=== PATIENT | female | born 1990 | race American Indian/Alaskan Native ===

== ENCOUNTER 2017-12-01 22:23 | Outpatient (CLI) | payer MEDICAID ==
[2017-12-01 23:23] VITALS: BP 130/78
[2017-12-02] MEDS ORDERED: LACTATED RINGERS 500 ML IV ONE (00:50)
== END 2017-12-02 01:01 | disposition home or self-care (01) ==
LOC: TRG 22:23
PROVIDERS: ATTEND Obstetrics & Gynecology
DX: O47.03 False labor before 37 completed weeks of gestation, third trimester (principal); Z3A.36 36 weeks gestation of pregnancy
CPT/HCPCS: J7120

== ENCOUNTER 2017-12-08 08:36 | Outpatient (CLI) | payer MEDICAID ==
[2017-12-08 09:21] LABS: Bacteria,Urine 1+ /HPF (Negative); Bilirubin,Urine NEG (Negative); Blood,Urine NEG (Negative); Color,Urine Straw (Yellow); Protein,Urine <15 mg/dL mg/dL (Negative); Urobilinogen,Urine < 2.0 mg/dL (<2.0)
[2017-12-08 09:24] LABS: Mean Corpuscular HGB Conc 29 % (30-34); Mean Corpuscular Volume 75 fl (79-97); Red Blood Count 3.89 M/mm3 (3.65-5.03)
[2017-12-08 09:26] LABS: Hematocrit 29.3 % (30.3-42.9); Hemoglobin 8.6 gm/dl (10.1-14.3); Mean Corpuscular Hemoglobin 22 pg (28-32); Platelet Count 280 K/mm3 (140-440)
[2017-12-08 10:13] VITALS: BP 133/87
[2017-12-08 10:31] LABS: Alanine Aminotransferase 7 units/L (7-56); Uric Acid 3.6 mg/dL (3.5-7.6)
--- NOTE | 2017-12-08 11:05 | Ultrasound Report ---
ULTRASOUND OB LIMITED History: MIREYA Technique: Transabdominal ultrasound with Doppler interrogation. Gestation: Single Position: Cephalic Amniotic Fluid: Normal MIREYA = 9.0 cm Heart Rate: 140 BPM
--- NOTE | 2017-12-08 11:06 | Ultrasound Report ---
ULTRASOUND BIOPHYSICAL PROFILE: History: well being Technique: Transabdominal ultrasound with Doppler interrogation. 2 - breathing movements 2 - movements 2 - posture and tone 2 - Qualitative amniotic fluid volume 8 - TOTAL SCORE OF POSSIBLE 8 Heart Rate (bpm) 140
== END 2017-12-08 12:50 | disposition home or self-care (01) ==
LOC: TRG 08:36
PROVIDERS: ATTEND Obstetrics & Gynecology
DX: O47.1 False labor at or after 37 completed weeks of gestation (principal); Z3A.37 37 weeks gestation of pregnancy
CPT/HCPCS: 36415; 59025; 76815; 76819; 81001; 82565; 83615; 84450; 84460; 84550; 85027

== ENCOUNTER 2017-12-09 09:57 | Inpatient (IN) | payer MEDICAID ==
[2017-12-09] MEDS ORDERED: LACTATED RINGERS 1,000 ML ONE (12:24)
[2017-12-09] MEDS ORDERED: POLYCILLIN/NS 2 GM/100 ML 2 GM/100 ML BAG IV ONE (12:33)
[2017-12-09] MEDS ORDERED: PITOCin/NS 30 UNIT/500ML 30 UNITS/500 ML BAG IV SCH ×3 (13:00→15:00)
[2017-12-09] MEDS ORDERED: LACTATED RINGERS 1,000 ML IV SCH ×2 (13:00→15:00)
[2017-12-09] MEDS ORDERED: BRETHINE IVP PRN (14:44)
[2017-12-09] MEDS ORDERED: XYLOCAINE 2% INFILTRATI ONE (14:44)
[2017-12-09] MEDS ORDERED: BRETHINE SUB-Q PRN (14:44)
[2017-12-09] MEDS ORDERED: STADOL IV PRN (14:44)
[2017-12-09] MEDS ORDERED: ZOFRAN IV PRN ×2 (14:44→19:09)
[2017-12-09] MEDS ORDERED: ePHEDrine SULFATE IV PRN (14:44)
[2017-12-09] MEDS ORDERED: MINERAL OIL PO PRN (14:44)
[2017-12-09] MEDS ORDERED: SUBLIMAZE IV PRN (14:44)
--- NOTE | 2017-12-09 14:54 | History and Physical Report ---
History of Present Illness Date of examination: 12/09/17 Date of admission: 12/09/17 09:57 Chief complaint: Induction of labor History of present illness: Pt is a 27yo BF EDC 12/27/17; EGA 37 3/7 weeks presents from [facility] for induction of labor due to Oligohydramnios. She received late care at [facility] since 32 weeks and followed by [facility] for history of deliveries x 3. records are available, but GBS is unknown. Past History Past Medical History: no pertinent history Past Surgical History: no surgical history Social history: no significant social history, single - Obstetrical History Expected Date of Delivery: 12/27/17 Actual Gestation: 37 Week(s) 3 Day(s) : 4 Medications and Allergies Allergies Allergy/AdvReac Type Severity Reaction Status Date / Time No Known Allergies Allergy Verified 05/12/14 09:52 Home Medications Medication Instructions Recorded Confirmed Last Taken Type HYDROcodone/ACETAMINOPHEN [[place] 1 each PO Q6HR #20 tablet 05/12/14 Unknown Rx 5/325 Tablet] Ibuprofen [Motrin] 600 mg PO Q8H PRN #40 tablet 05/12/14 Unknown Rx Sulfamethoxazole/Trimethoprim 1 each PO BID #14 tablet 05/12/14 Unknown Rx [Bactrim Ds] Active Meds: Active Medications Lactated Ringer's (Lactated Ringers) 1,000 mls @ 125 mls/hr IV DIRECT KEITH Last Admin: 12/09/17 13:06 Dose: 125 mls/hr Oxytocin/Sodium Chloride (Pitocin/Ns 30 Unit/500ml) 30 units in 500 mls @ 4 mls /hr IV TITR KEITH; Protocol Last Titration: 12/09/17 14:47 Dose: 12 ml/hr, 12 mls/hr Review of Systems All systems: negative - Vital Signs Vital signs: Vital Signs Pulse BP 95 H 122/83 12/09/17 10:28 12/09/17 10:28 Temp Pulse Resp BP Pulse Ox 98.1 F 93 H 16 119/78 99 12/09/17 11:49 12/09/17 12:11 12/09/17 11:49 12/09/17 12:06 12/09/17 12:11 - Physical Exam Breasts: Positive: deferred Cardiovascular: Regular rate Lungs: Positive: Clear to auscultation Abdomen: Positive: normal appearance Genitourinary (Female): Positive: normal external genitalia Uterus: Positive: enlarged Extremities: Positive: normal - Obstetrical FHR: category 1 Uterine Contraction Monitor Mode: External Cervical Dilatation: 3 (per nurse) Cervical Effacement Percentage: 30 (per nurse) station: -2 Uterine Contraction Pattern: Irregular Uterine Contraction Intensity: Mild Results All other labs normal. Assessment and Plan - Patient Problems (1) 37 weeks gestation of Current Visit: Yes Status: Acute Plan to address problem: A: IUP @ 37 3/7 weeks Oligohydramnios Unknown GBS P: Admit to L&D for pitocin induction of labor IV Ampicillin (2) Oligohydramnios without rupture of membranes in third trimester Onset Date: 12/09/17 Current Visit: Yes Status: Acute Qualifiers: Fetus number: single or unspecified fetus Qualified Code(s): O41.03X0 - Oligohydramnios, third trimester, not applicable or unspecified
[2017-12-09] MEDS ORDERED: PITOCin/NS 20 UNIT/1000ML DRIP 20 UNITS/1,000 ML BAG IV SCH ×2 (15:00→20:00)
[2017-12-09 17:06] LABS: Hematocrit 28.7 % (30.3-42.9); Mean Platelet Volume 8.2 fl (6-12); Red Blood Count 3.97 M/mm3 (3.65-5.03)
[2017-12-09] MEDS ORDERED: SODIUM CHLORIDE FLUSH SYRINGE 10 ML IV PRN (18:44)
[2017-12-09] MEDS ORDERED: NARCAN 0.4 MG/1 ML IV PRN (18:44)
--- NOTE | 2017-12-09 18:44 | Anesthesia Consultation ---
Anesthesia Consult and Med Hx Date of service: 12/09/17 - Airway Anesthetic Teeth Evaluation: Good ROM Head & Neck: Adequate Mental/Hyoid Distance: Adequate Mallampati Class: Class II Intubation Access Assessment: Good - Pulmonary Exam CTA: Yes - Cardiac Exam Cardiac Exam: No Murmur - Pre-Operative Health Status ASA Pre-Surgery Classification: ASA2 Proposed Anesthetic Plan: Epidural - Pulmonary Hx Asthma: No COPD: No Hx Pneumonia: No - Cardiovascular System Hx Hypertension: Yes - Central Nervous System Hx Seizures: No Hx Psychiatric Problems: No - Endocrine Hx Renal Disease: No Hx End Stage Renal Disease: No Hx Hypothyroidism: Yes Hx Hyperthyroidism: No - Hematic Hx Sickle Cell Disease: No - Other Systems Hx Alcohol Use: No
[2017-12-09] MEDS ORDERED: AMPICILLIN/NS 1 GM/50 ML 1 GM/50 ML BAG IV SCH (18:47)
--- NOTE | 2017-12-09 19:07 | Procedure Note ---
OB Delivery Note - Delivery Date of Delivery: 12/09/17 Surgeon: JÚNIOR DOMINGO Estimated blood loss: 200cc - Vaginal Delivery presentation: vertex Delivery position: OA Intrapartum events: none, hydramnios Delivery induction: oxytocin Delivery augmentation: rupture of membranes, pitocin Delivery monitor: external FHT, external uterine Route of delivery: Delivery placenta: spontaneous Delivery cord: 3 umbilical vessels Episiotomy: none Delivery laceration: none Anesthesia: intravenous Delivery comments: Infant delivered OA and placed on Mom's chest for [id number] bonding and delayed cord clamping. - Infant A at 1 minute: 9 at 5 minutes: 9 Infant Gender: Male (2970gms)
[2017-12-09] MEDS ORDERED: DULCOLAX PR PRN (19:09)
[2017-12-09] MEDS ORDERED: LANSINOH TP PRN (19:09)
[2017-12-09] MEDS ORDERED: BENADRYL PO PRN (19:09)
[2017-12-09] MEDS ORDERED: TYLENOL PO PRN (19:09)
[2017-12-09] MEDS ORDERED: TUCKS PAD TP PRN (19:09)
[2017-12-09] MEDS ORDERED: NORCO 5/325 PO PRN (19:09)
[2017-12-09] MEDS ORDERED: PHENERGAN PO PRN (19:09)
[2017-12-09] MEDS ORDERED: PHENERGAN PR PRN (19:09)
[2017-12-09] MEDS ORDERED: MILK OF MAGNESIA PO PRN (19:09)
[2017-12-09] MEDS ORDERED: MOTRIN PO SCH (20:00)
[2017-12-09] MEDS ORDERED: SODIUM CHLORIDE FLUSH SYRINGE 10 ML IV NR (20:00)
[2017-12-09] MEDS: COLACE PO SCH (21:40)
[2017-12-09] MEDS: FEOSOL PO SCH (21:40)
[2017-12-09] MEDS: MOTRIN PO SCH (23:34)
[2017-12-10] MEDS: MOTRIN PO SCH ×3 (05:07→18:09)
[2017-12-10] MEDS ORDERED: M-M-R II VACCINE SUB-Q ONE (06:00)
[2017-12-10] MEDS ORDERED: BOOSTRIX IM ONE (06:00)
[2017-12-10 06:37] LABS: Hematocrit 23.7 % (30.3-42.9); Hemoglobin 7.5 gm/dl (10.1-14.3)
--- NOTE | 2017-12-10 09:02 | Progress Note ---
Assessment and Plan - Patient Problems (1) 37 weeks gestation of Current Visit: Yes Status: Resolved (2) Oligohydramnios without rupture of membranes in third trimester Onset Date: 12/09/17 Current Visit: Yes Status: Resolved Qualifiers: Fetus number: single or unspecified fetus Qualified Code(s): O41.03X0 - Oligohydramnios, third trimester, not applicable or unspecified (3) (normal spontaneous vaginal delivery) Onset Date: 12/10/17 Current Visit: Yes Status: Resolved Plan to address problem: A: S/P - PPD #1 Doing well Asymptomatic anemia - stable P: May go home tomorrow. Subjective - Subjective Date of service: 12/10/17 Principal diagnosis: s/p - PPD #1 Interval history: Pt is a 27yo BF EDC 12/27/17; EGA 37 3/7 weeks presents from [facility] for induction of labor due to Oligohydramnios. She received late care at [facility] since 32 weeks and followed by [facility] for history of deliveries x 3. records are available, but GBS is unknown. Patient reports: appetite normal, voiding normally, pain well controlled, flatus , ambulating normally, no dizzy ambulation, no nauseated : doing well, nursing well Objective - Vital Signs Latest vital signs: Vital Signs Temp Pulse Resp BP BP Pulse Ox 12/10/17 05:26 98 F 72 18 110/70 12/10/17 01:55 97.9 F 77 18 113/64 12/09/17 21:20 98.4 F 73 16 111/70 12/09/17 20:55 87 126/72 12/09/17 20:46 97.4 F L 87 16 126/72 12/09/17 20:32 88 116/77 12/09/17 19:55 72 120/72 12/09/17 19:40 74 122/73 12/09/17 19:25 81 124/70 12/09/17 19:18 84 124/62 12/09/17 19:14 88 151/68 12/09/17 17:29 18 12/09/17 12:11 93 H 99 12/09/17 12:06 94 H 119/78 99 12/09/17 11:49 98.1 F 92 H 16 119/78 99 12/09/17 10:28 95 H 122/83 Intake and Output 12/09/17 12/10/17 12/10/17 22:59 06:59 14:59 Intake Total 125 245 Output Total 600 1300 Balance -475 -1055 Intake: Oral 125 125 Intake, Free Water 120 Output: Urine 600 1300 Void 600 1300 Other: Total, Intake Amount 125 125 Total, Output Amount 600 600 Estimated Blood Loss 200 - Exam Breasts: Present: deferred Lungs: Present: Clear to auscultation Abdomen: Present: normal appearance, soft Uterus: Present: normal, firm, fundal height below umbilicus Extremities: Present: normal - Labs Labs: Abnormal lab results 12/09/17 12/10/17 Range/Units 16:34 06:13 Hgb 9.0 L 7.5 L (10.1-14.3) gm/dl Hct 28.7 L 23.7 L (30.3-42.9) % MCV 72 L (79-97) fl MCH 23 L (28-32) pg RDW 18.0 H (13.2-15.2) % Laboratory Tests 12/09/17 12/09/17 12/10/17 16:34 16:34 06:13 WBC 6.8 RBC 3.97 Hgb 9.0 L 7.5 L Hct 28.7 L 23.7 L MCV 72 L MCH 23 L MCHC 32 RDW 18.0 H Plt Count 362 Blood Type O POSITIVE Antibody Screen Negative
--- NOTE | 2017-12-10 09:07 | Discharge Summary ---
Providers - Providers Date of Admission: 12/09/17 09:57 Date of discharge: 12/11/17 Attending physician: JÚNIOR DOMINGO Primary care physician: JÚNIOR DOMINGO Hospitalization Reason for admission: active labor, IUP at term Delivery: Episiotomy: none Laceration: none Other procedures: none complications: none Discharge diagnosis: IUP at term delivered [place] baby: male Hospital course: Unremarkable. Condition at discharge: Good Disposition: DC-01 TO HOME OR SELFCARE - Discharge Diagnoses (1) 37 weeks gestation of Status: Resolved (2) Oligohydramnios without rupture of membranes in third trimester Status: Resolved Qualifiers: Fetus number: single or unspecified fetus Qualified Code(s): O41.03X0 - Oligohydramnios, third trimester, not applicable or unspecified (3) (normal spontaneous vaginal delivery) Status: Resolved Plan - Discharge Medications Prescriptions: Ferrous Sulfate [Feosol 325 MG tab] 325 mg PO BID #60 tablet Ibuprofen [Motrin 600 MG tab] 600 mg PO Q6HR #30 tablet Vit-Fe Fumar-FA [ Vitamin] 1 each PO QDAY #30 tablet - Provider Discharge Summary Activity: routine, no sex for 6 weeks, no heavy lifting 4 weeks, no strenuous exercise Diet: routine Instructions: routine Additional instructions: [] Smoking cessation referral if applicable(refer to patient education folder for contact #) [] Refer to [facility]'s [facility] Booklet Call your doctor immediately for: * Fever > 100.5 * Heavy vaginal bleeding ( >1 pad per hour) * Severe persistent headache * Shortness of breath * Reddened, hot, painful area to leg or breast * Drainage or odor from incision. * Keep incision clean and dry at all times and follow doctor's instructions regarding bathing/showering - Follow up plan Follow up: JÚNIOR DOMINGO MD [Primary Care Provider] - 6 Weeks CHARISSE GARVIN CNM [Advanced Practice Nurse] - 6 Weeks
[2017-12-10] MEDS ORDERED: PRENATAL VITAMIN PO SCH (10:00)
[2017-12-10] MEDS: FEOSOL PO SCH (15:51)
[2017-12-11] MEDS: COLACE PO SCH (01:21)
[2017-12-11] MEDS: MOTRIN PO SCH ×2 (01:21→06:48)
[2017-12-11] MEDS: FEOSOL PO SCH (01:21)
[2017-12-11 16:43] VITALS: BP 120/66
== END 2017-12-11 18:00 | disposition home or self-care (01) | DRG 775 ==
LOC: LD 09:57 → OB 21:10
PROVIDERS: ADMIT Obstetrics & Gynecology; ATTEND Obstetrics & Gynecology
PROC: 10E0XZZ Delivery of Products of Conception, External Approach (ICD-10-PCS; principal; 2017-12-09)
PROC: 3E033VJ Introduction of Other Hormone into Peripheral Vein, Percutaneous Approach (ICD-10-PCS; 2017-12-09)
DX: O41.03X0 Oligohydramnios, third trimester, not applicable or unspecified (principal); Z3A.37 37 weeks gestation of pregnancy; Z37.0 Single live birth; Z79.899 Other long term (current) drug therapy; O90.81 Anemia of the puerperium; D64.9 Anemia, unspecified
CPT/HCPCS: 36415; 85014; 85018; 85027; 86592; 86850; 86900; 86901; 99211; A6250; G0463; J0290; J0595; J2590; J7120

== ENCOUNTER 2019-08-16 17:39 | Outpatient (CLI) | payer MEDICAID ==
[2019-08-16 18:11] VITALS: BP 134/73
[2019-08-16] MEDS ORDERED: LACTATED RINGERS 1,000 ML IV ONE (19:13)
[2019-08-16] MEDS ORDERED: LACTATED RINGERS 500 ML IV ONE (20:46)
[2019-08-16] MEDS ORDERED: TERBUTALINE 1 MG/1 ML INJ SUB-Q PRN ×2 (20:56→23:52)
[2019-08-16 21:39] LABS: Basophils % (Auto) 0.2 % (0.0-1.8); Eosinophils % (Auto) 0.5 % (0.0-4.3); Hematocrit 26.1 % (30.3-42.9); Hemoglobin 8.2 gm/dl (10.1-14.3); Lymphocytes # (Auto) 2.1 K/mm3 (1.2-5.4); Lymphocytes % (Auto) 24.5 % (13.4-35.0); Mean Corpuscular HGB Conc 32 % (30-34); Mean Corpuscular Volume 70 fl (79-97); Monocytes # (Auto) 0.5 K/mm3 (0.0-0.8); Monocytes % (Auto) 6.1 % (0.0-7.3); Platelet Count 419 K/mm3 (140-440); Red Blood Count 3.71 M/mm3 (3.65-5.03); Red Cell Distribution Width 18.7 % (13.2-15.2)
[2019-08-16] MEDS ORDERED: LACTATED RINGERS 1,000 ML ONE (23:57)
[2019-08-16 23:58] LABS: Amphetamine Screen,Urine PRESUMPTIVE NEGATIVE; Benzodiazepines Screen,Urine PRESUMPTIVE NEGATIVE; Cannabinoid Screen,Urine PRESUMPTIVE NEGATIVE; Cocaine Screen,Urine PRESUMPTIVE NEGATIVE; Methadone Screen,Urine PRESUMPTIVE NEGATIVE; Opiate Screen,Urine PRESUMPTIVE NEGATIVE
[2019-08-17 00:09] LABS: Bacteria,Urine 1+ /HPF (Negative); Bilirubin,Urine NEG (Negative); Blood,Urine NEG (Negative); Color,Urine Yellow (Yellow); Mucus,Urine FEW /HPF; Protein,Urine <15 mg/dL mg/dL (Negative); Urobilinogen,Urine < 2.0 mg/dL (<2.0)
[2019-08-17] MEDS ORDERED: fentaNYL 100 MCG/2 ML INJ IV PRN (00:43)
[2019-08-17] MEDS ORDERED: LACTATED RINGERS 1,000 ML ONE (02:03)
[2019-08-17] MEDS ORDERED: AMPICILLIN/NS 2 GM/100 ML 2 GM/100 ML BAG IV ONE (02:27)
--- NOTE | 2019-08-17 03:46 | Ultrasound Report ---
ULTRASOUND OBSTETRIC LIMITED ULTRASOUND BIOPHYSICAL PROFILE INDICATION / CLINICAL INFORMATION: Possible labor. COMPARISON: OB ultrasound from 12/08/2017. FINDINGS: BREATHING MOVEMENT = 2 GROSS BODY MOVEMENT = 2 TONE = 2 QUALITATIVE AMNIOTIC FLUID VOLUME = 2 TOTAL BIOPHYSICAL SCORE = 8/8 AMNIOTIC FLUID INDEX (cm) = Not measured. PRESENTATION: Cephalic. HEART RATE (beats per minute): 129 ADDITIONAL FINDINGS: The cervical length is 4.62 cm. IMPRESSION: 1. Biophysical Score = 8/8 2. Additional findings as above. Signer Name: Catracho Bryant MD Signed: 08/17/2019 3:42 AM Workstation Name: [id number]
--- NOTE | 2019-08-17 08:56 | Progress Note ---
Subjective - Subjective Date of service: 08/17/19 Principal diagnosis: iup@ 33.3wks/r/o PTL Objective - Vital Signs Vital Signs: Vital Signs - 12hr 08/16/19 08/16/19 08/16/19 21:30 21:35 21:40 Pulse Rate 97 H 100 H 104 H O2 Sat by Pulse 100 100 100 Oximetry 08/16/19 08/16/19 08/16/19 21:45 21:50 21:55 Pulse Rate 98 H 98 H 95 H O2 Sat by Pulse 100 100 100 Oximetry 08/16/19 08/16/19 08/16/19 22:00 22:05 22:10 Pulse Rate 102 H 102 H 108 H O2 Sat by Pulse 100 100 100 Oximetry 08/16/19 08/16/19 08/16/19 22:15 22:20 22:25 Pulse Rate 106 H 111 H 103 H O2 Sat by Pulse 100 100 100 Oximetry 08/16/19 08/16/19 08/16/19 22:30 22:35 22:40 Pulse Rate 110 H 110 H 111 H O2 Sat by Pulse 100 100 100 Oximetry 08/16/19 08/16/19 08/16/19 22:45 22:50 22:55 Pulse Rate 111 H 111 H 104 H O2 Sat by Pulse 100 100 100 Oximetry 08/16/19 08/16/19 08/17/19 23:00 23:05 00:08 Pulse Rate 107 H 116 H 121 H O2 Sat by Pulse 100 99 100 Oximetry 08/17/19 08/17/19 08/17/19 00:13 00:18 00:23 Pulse Rate 117 H 109 H 114 H O2 Sat by Pulse 100 100 100 Oximetry 08/17/19 08/17/19 08/17/19 00:28 00:33 00:38 Pulse Rate 111 H 114 H 113 H O2 Sat by Pulse 100 100 100 Oximetry 08/17/19 08/17/19 08/17/19 00:43 00:48 00:53 Pulse Rate 112 H 116 H 128 H O2 Sat by Pulse 100 100 100 Oximetry 08/17/19 08/17/19 08/17/19 00:58 01:03 01:08 Pulse Rate 116 H 114 H 116 H O2 Sat by Pulse 100 100 100 Oximetry 08/17/19 08/17/19 08/17/19 01:13 01:18 01:23 Pulse Rate 111 H 112 H 114 H O2 Sat by Pulse 97 100 99 Oximetry 08/17/19 08/17/19 08/17/19 01:28 01:33 01:38 Pulse Rate 104 H 103 H 113 H O2 Sat by Pulse 99 99 99 Oximetry 08/17/19 08/17/19 08/17/19 01:43 01:48 01:54 Pulse Rate 103 H 106 H 107 H O2 Sat by Pulse 98 99 99 Oximetry 08/17/19 08/17/19 08/17/19 01:57 01:59 02:04 Pulse Rate 110 H 107 H 104 H O2 Sat by Pulse 94 100 100 Oximetry 08/17/19 08/17/19 08/17/19 02:09 02:14 02:19 Pulse Rate 109 H 108 H 104 H O2 Sat by Pulse 100 100 100 Oximetry 08/17/19 08/17/19 08/17/19 02:24 02:29 02:34 Pulse Rate 107 H 104 H 107 H O2 Sat by Pulse 100 100 99 Oximetry 08/17/19 08/17/19 08/17/19 02:35 02:39 02:44 Pulse Rate 105 H 107 H 108 H O2 Sat by Pulse 92 99 100 Oximetry 08/17/19 08/17/19 08/17/19 02:49 02:54 02:59 Pulse Rate 106 H 103 H 107 H O2 Sat by Pulse 99 100 100 Oximetry 08/17/19 08/17/19 08/17/19 03:04 03:09 03:14 Pulse Rate 110 H 106 H 108 H O2 Sat by Pulse 99 99 100 Oximetry 08/17/19 08/17/19 08/17/19 03:19 03:24 03:29 Pulse Rate 105 H 104 H 102 H O2 Sat by Pulse 100 100 100 Oximetry 08/17/19 08/17/19 08/17/19 03:34 03:39 03:44 Pulse Rate 110 H 104 H 106 H O2 Sat by Pulse 100 99 100 Oximetry 08/17/19 08/17/19 08/17/19 03:49 03:54 03:59 Pulse Rate 106 H 108 H 112 H O2 Sat by Pulse 99 100 100 Oximetry 08/17/19 04:04 Pulse Rate 110 H O2 Sat by Pulse 100 Oximetry - Labs Labs: Abnormal Labs 12/10/19 12/10/19 21:20 23:00 Hgb 8.2 L Hct 26.1 L MCV 70 L MCH 22 L RDW 18.7 H U Epithel Cells (Auto) 16.0 H Laboratory Results - last 24 hr 08/16/19 08/16/19 08/16/19 20:50 21:20 23:00 WBC 8.7 RBC 3.71 Hgb 8.2 L Hct 26.1 L MCV 70 L MCH 22 L MCHC 32 RDW 18.7 H Plt Count 419 Lymph % (Auto) 24.5 [place] % (Auto) 6.1 Eos % (Auto) 0.5 Baso % (Auto) 0.2 Lymph # 2.1 [place] # 0.5 Eos # 0.0 Baso # 0.0 Seg Neutrophils % 68.7 Seg Neutrophils # 6.0 Urine Color Yellow Urine Turbidity Cloudy Urine pH 7.0 Ur Specific [place] 1.012 Urine Protein <15 mg/dl Urine Glucose (UA) Neg Urine Ketones 20 Urine Blood Neg Urine Nitrite Neg Urine Bilirubin Neg Urine Urobilinogen < 2.0 Ur Leukocyte Esterase Lg Urine WBC (Auto) 5.0 Urine RBC (Auto) 4.0 U Epithel Cells (Auto) 16.0 H Urine Bacteria (Auto) 1+ Urine Mucus Few Urine Opiates Screen Urine Methadone Screen Ur Barbiturates Screen Ur Phencyclidine Scrn Ur Amphetamines Screen U Benzodiazepines Scrn Urine Cocaine Screen U Marijuana (THC) Screen Drugs of Abuse Note Fibronectin Negative 08/16/19 23:00 WBC RBC Hgb Hct MCV MCH MCHC RDW Plt Count Lymph % (Auto) [place] % (Auto) Eos % (Auto) Baso % (Auto) Lymph # [place] # Eos # Baso # Seg Neutrophils % Seg Neutrophils # Urine Color Urine Turbidity Urine pH Ur Specific [place] Urine Protein Urine Glucose (UA) Urine Ketones Urine Blood Urine Nitrite Urine Bilirubin Urine Urobilinogen Ur Leukocyte Esterase Urine WBC (Auto) Urine RBC (Auto) U Epithel Cells (Auto) Urine Bacteria (Auto) Urine Mucus Urine Opiates Screen Presumptive negative Urine Methadone Screen Presumptive negative Ur Barbiturates Screen Presumptive negative Ur Phencyclidine Scrn Presumptive negative Ur Amphetamines Screen Presumptive negative U Benzodiazepines Scrn Presumptive negative Urine Cocaine Screen Presumptive negative U Marijuana (THC) Screen Presumptive negative Drugs of Abuse Note Disclamer Fibronectin
--- NOTE | 2019-08-17 09:25 | Event Note ---
Date: 08/17/19 29 y/o AA female @ 33.2 wks presented with c/o u/c and decreased FM. Per pt she is a pt at [facility] office. Upon arrival pt had FHTs of 140 with mod audrey, pos accels and neg decels. UC were q 3-4/ min. Cx 1/50%/-3. Active FM was noted. Pt's cervical length was 4.6 with a BPP of 8/8 per us. A reactive NST was noted. UA revealed cloudy urine with 1+ bacteria. Pt was given 2 liters of IV fluids, terbutaline times 2, and 2 doses of Fentanyl for c/o uc. 2 gms of Ampicillin was also given for suspected UTI. At 7am FHT was 138 with mod audrey, pos accels with occ mild variables. UCs were mild and occurring irregularly. After many hours of monitoring pt's cervix remained unchanged at 1/50%/-3 and pt was d/c'd home with PTL precaution instructions. Pt was advised to f/u with [facility] for ob f/u. POC agreed with plan of care.
[2019-08-17] MEDS ORDERED: PRENATAL VIT27-FE FUMARATE-FOLIC ACID VIT TAB PO SCH (10:00)
[2019-08-17] MEDS ORDERED: FERROUS SULFATE 325 MG TAB PO SCH (10:00)
== END 2019-08-17 08:05 | disposition home or self-care (01) ==
LOC: TRG 17:39
PROVIDERS: ATTEND Obstetrics & Gynecology
DX: O36.8130 Decreased fetal movements, third trimester, not applicable or unspecified (principal); O47.03 False labor before 37 completed weeks of gestation, third trimester; O10.913 Unspecified pre-existing hypertension complicating pregnancy, third trimester; O99.283 Endocrine, nutritional and metabolic diseases complicating pregnancy, third trimester; E03.9 Hypothyroidism, unspecified; Z3A.33 33 weeks gestation of pregnancy
CPT/HCPCS: 36415; 59025; 76815; 76819; 80307; 81001; 82731; 85025; 96360; 96365; 96366; 96368; 96372; J0290; J3010; J3105; J7120; 96361; 96374

== ENCOUNTER 2020-06-28 12:29 | Inpatient (IN) | payer MEDICAID ==
[2020-06-28] MEDS ORDERED: SENNOSIDES/DOCUSATE SODIUM 8.6/50 MG TAB PO PRN (12:39)
[2020-06-28] MEDS ORDERED: diphenhydrAMINE 25 MG CAP PO PRN (12:39)
[2020-06-28] MEDS ORDERED: SIMETHICONE 80 MG CHEW TAB PO PRN (12:39)
[2020-06-28] MEDS ORDERED: guaiFENesin DM 200/20 MG ORAL LIQD 10 ML PO PRN (12:39)
[2020-06-28] MEDS ORDERED: MAGNESIUM HYDROXIDE (MOM) ORAL LIQD UDC PO PRN (12:39)
[2020-06-28] MEDS ORDERED: ONDANSETRON 4 MG/2 ML INJ IV PRN (12:39)
[2020-06-28] MEDS ORDERED: DOCUSATE SODIUM 100 MG CAP PO PRN (12:39)
[2020-06-28] MEDS ORDERED: ACETAMINOPHEN 325 MG TAB PO PRN (12:39)
[2020-06-28] MEDS ORDERED: ALUM-MAG HYDROXIDE-SIMETHICONE 200-200-20MG/5ML ORAL LIQD 30 ML PO PRN (12:39)
--- NOTE | 2020-06-28 12:47 | History and Physical Report ---
History of Present Illness Date of examination: 06/28/20 Chief complaint: contractions q5-6 minutes, insufficient care. Sent from office History of present illness: EDC Confirmation: 08/19/2020 Past History : 6 Term Births: 3 Premature Births: 3 Living Children: 5 Para: 5 Mult. Births: 1 Prev : 1 Prev. attempt? 3 Aborta: 0 Elect. Ab: 0 Spont. Ab: 0 Ectopics: 0 # 1 Delivery date: 2010 Weeks Gestation: 37 labor: yes Delivery type: Hours of labor: 11 Anesthesia type: epidural Delivery location: [facility] Sex: Male weight: 5#14 # 2 Delivery date: 2012 Weeks Gestation: 34 labor: yes Delivery type: c/s Anesthesia type: epidural Delivery location: [facility] Infant Sex: female/male Comments: Twins, 1st baby vaginal, second baby transverse # 3 Delivery date: 2014 Weeks Gestation: 37 Delivery type: Anesthesia type: epidural Delivery location: [place] Sex: Male weight: 5 # 4 Delivery date: 2017 Weeks Gestation: 37 Delivery type: Anesthesia type: none Delivery location: [facility] Infant Sex: Male weight: 6# Comments: IOL [place] # 5 Delivery date: 2018 Weeks Gestation: 34.6 labor: yes Delivery type: Anesthesia type: none Delivery location: [facility] Sex: Female weight: 6# Past Medical History: Hyperthyroidism Abnormal pap Anxiety + Chalmydia Past Surgical History: c/s 2012 Tonsillectomy (1999) Past Medical History Surgery (Non-exam proctor): c/s 2012 Tonsillectomy (1999) Abnormal PAP: positive, ASCUS + 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 of genital herpes: no Partner hx. of genital herpes: no Rash, Viral, or Febrile illness since last LMP? no Genetic History Congenital Heart Defect: Mom: no Dad: no Pat Disease: Mom: no Dad: no Thalassemia Mom: no Dad: no Neural Tube Defect Mom: no Dad: no Down's Syndrome Mom: no Dad: no Deon-Sachs Mom: no Dad: no Sickle Cell Disease/Trait Mom: no Dad: no Hemophilia Mom: no Dad: no Muscular Dystrophy Mom: no Dad: no Cystic Fibrosis Mom: no Dad: no Melvin Chorea Mom: no Dad: no Mental Retardation Mom: no Dad: no Fragile X Mom: no Dad: no Other Genetic/Chromosomal Disorder Mom: no Dad: no Child w/other defect Mom: no Dad: no Enviromental Exposures Xray Exposure: no Medication, drug, or alcohol use since LMP: no Chemical/Other Exposure: no Exposure to Cat Liter: no Hx of Parvovirus (Fifth Disease): no Occupational Exposure to Children: none Active Medications (reviewed today): None Current Allergies (reviewed today): No known allergies Past History Past Medical History: other (see HPI) Past Surgical History: other (see HPI) [employer] ASSISTANT History: other (see HPI) Family/Genetic History: other (see HPI) - Obstetrical History Expected Date of Delivery: 08/19/20 Actual Gestation: 32 Week(s) 4 Day(s) : 6 Para: 4 Hx # Term Pregnancies: 3 Number of Pregnancies: 3 Spontaneous Abortions: 0 Induced : 0 Number of Living Children: 6 Medications and Allergies Allergies Allergy/AdvReac Type Severity Reaction Status Date / Time No Known Allergies Allergy Verified 05/12/14 09:52 Home Medications Medication Instructions Recorded Confirmed Last Taken Type Ferrous Sulfate [Feosol 325 MG tab] 325 mg PO BID #60 tablet 09/05/19 Unknown Rx Ibuprofen [Motrin 600 MG tab] 600 mg PO Q6H #30 tablet 09/05/19 Unknown Rx Vit-Fe Fumar-FA [ 1 each PO QDAY #30 tablet 09/05/19 Unknown Rx Vitamin] Active Meds: Active Medications Betamethasone Acet/Betameth SodPhos (Celestone Soluspan) 12 mg IM Q24HR KEITH Stop: 06/29/20 10:01 Diphenhydramine HCl (Benadryl) 25 mg PO Q6H PRN PRN Reason: Itching Guaifenesin (Guaifenesin Dm Syrup) 10 ml PO Q6H PRN PRN Reason: Cough Lactated Ringer's (Lactated Ringers) 1,000 mls @ 125 mls/hr IV DIRECT KEITH Ondansetron HCl (Zofran) 4 mg IV Q6H PRN PRN Reason: Nausea And Vomiting Review of Systems All systems: negative - Physical Exam Breasts: Positive: normal Cardiovascular: Regular rate Lungs: Positive: Clear to auscultation, Normal air movement Abdomen: Positive: normal appearance, soft Genitourinary (Female): Positive: normal external genitalia, normal perenium Vulva: both: normal Vagina: Positive: normal moisture Uterus: Positive: normal size, normal contour - Obstetrical FHR: auscultation normal Uterine Contraction Monitor Mode: External Cervical Dilatation: 0.5 Cervical Effacement Percentage: 70 station: -3 Uterine Contraction Pattern: Regular Uterine Tone Measurement Phase: Contraction Uterine Contraction Intensity: Mild Results All other labs normal. Assessment and Plan 30y/o admitted for steroids and tocolysis if needed. She presented to our office today to establish her care. She c/o ctx q5-6 minutes x 1 week. She is a prev c/s. She has 1 previous visit with [facility] @ 26 weeks. hx delivery and close conceptions, also hx of hypothyroidism w/ medication noncompliance per her mother. Admission orders in EMR. Will consult [facility]. - Patient Problems (1) Hypothyroidism Current Visit: Yes Status: Acute Plan to address problem: Labs collected (2) Previous delivery, antepartum condition or complication Current Visit: Yes Status: Acute Plan to address problem: plan for a repeat c/s @ 39 weeks or sooner if goes into active labor, pt desires tubal ligation. Consents signed 06/28/20 (3) 32 weeks gestation of Current Visit: Yes Status: Acute (4) Late care affecting in third trimester Current Visit: Yes Status: Acute (5) contractions Onset Date: 09/04/19 Current Visit: Yes Status: Resolved Plan to address problem: Mag sulfate and steroids for lung maturity AMFM consult
[2020-06-28 14:17] LABS: Hematocrit 24.4 % (30.3-42.9); Hemoglobin 7.9 gm/dl (10.1-14.3); Mean Corpuscular HGB Conc 32 % (30-34); Platelet Count 380 K/mm3 (140-440); Red Blood Count 3.68 M/mm3 (3.65-5.03)
[2020-06-28 14:21] LABS: Mean Corpuscular Volume 66 fl (79-97)
[2020-06-28] MEDS: BETAMET ACET/BETAMET NA PH 6 MG/ML INJ 5 ML MDV IM SCH (14:32)
[2020-06-28] MEDS: LACTATED RINGERS 1,000 ML IV SCH ×2 (14:34→22:24)
[2020-06-28] MEDS ORDERED: TERBUTALINE 1 MG/1 ML INJ SUB-Q ONE ×2 (14:58→17:00)
[2020-06-28 19:33] LABS: Bilirubin,Urine NEG (Negative); Blood,Urine NEG (Negative); Color,Urine Colorless (Yellow); Protein,Urine <15 mg/dL mg/dL (Negative); Urobilinogen,Urine < 2.0 mg/dL (<2.0); WBC,Urine < 1.0 /HPF (0.0-6.0)
[2020-06-28 19:35] LABS: RBC,Urine < 1.0 /HPF (0.0-6.0)
[2020-06-28] MEDS ORDERED: ZOLPIDEM 5 MG TAB PO PRN (22:36)
--- NOTE | 2020-06-29 08:47 | Progress Note ---
Assessment and Plan A: 30 y.o. @ 32 + wks, labor, limited PNC. One minute deceleration noted on monitor strip. P: BPP ordered. Continue to observe monitor strip. Administer second dose of steroids at approximately 220pm. Subjective - Subjective Date of service: 06/29/20 (Pt still feeling some ctxs and cramping) Principal diagnosis: IUP @ 32 wks, labor Patient reports: contractions Objective - Vital Signs Vital Signs: Vital Signs - 12hr 06/28/20 06/28/20 06/28/20 20:51 20:59 21:00 Temperature 98.9 F Pulse Rate 109 H 117 H Respiratory 20 Rate Blood Pressure 119/70 O2 Sat by Pulse 99 Oximetry 06/28/20 06/28/20 06/28/20 21:31 21:36 21:41 Temperature Pulse Rate 118 H 114 H 123 H Respiratory Rate Blood Pressure 123/72 O2 Sat by Pulse 98 98 98 Oximetry 06/28/20 06/28/20 06/28/20 21:46 21:51 21:56 Temperature Pulse Rate 125 H 124 H 128 H Respiratory Rate Blood Pressure O2 Sat by Pulse 98 98 99 Oximetry 06/28/20 06/28/20 06/28/20 21:59 22:01 22:04 Temperature Pulse Rate 125 H 129 H Respiratory Rate Blood Pressure 124/71 O2 Sat by Pulse 97 80 L Oximetry 06/28/20 06/28/20 06/28/20 22:10 22:13 22:15 Temperature Pulse Rate 109 H Respiratory Rate Blood Pressure O2 Sat by Pulse 77 L 83 L 85 Oximetry 06/28/20 06/28/20 06/28/20 22:18 22:23 22:28 Temperature Pulse Rate 142 H 126 H 126 H Respiratory Rate Blood Pressure O2 Sat by Pulse 99 99 98 Oximetry 06/28/20 06/28/20 06/28/20 22:33 22:38 22:43 Temperature Pulse Rate 123 H 123 H 126 H Respiratory Rate Blood Pressure O2 Sat by Pulse 98 99 99 Oximetry 06/28/20 06/28/20 06/28/20 22:48 22:53 22:58 Temperature Pulse Rate 123 H 123 H 129 H Respiratory Rate Blood Pressure O2 Sat by Pulse 98 98 98 Oximetry 06/28/20 06/28/20 06/28/20 22:59 23:03 23:08 Temperature Pulse Rate 126 H 130 H 127 H Respiratory Rate Blood Pressure 101/53 O2 Sat by Pulse 99 99 Oximetry 06/28/20 06/28/20 06/28/20 23:13 23:18 23:23 Temperature Pulse Rate 121 H 121 H 123 H Respiratory Rate Blood Pressure O2 Sat by Pulse 98 98 97 Oximetry 06/28/20 06/28/20 06/28/20 23:28 23:33 23:38 Temperature Pulse Rate 130 H 127 H 121 H Respiratory Rate Blood Pressure O2 Sat by Pulse 97 98 98 Oximetry 06/28/20 06/28/20 06/28/20 23:43 23:48 23:53 Temperature Pulse Rate 122 H 122 H 130 H Respiratory Rate Blood Pressure O2 Sat by Pulse 97 98 99 Oximetry 06/28/20 06/28/20 06/29/20 23:58 23:59 00:03 Temperature Pulse Rate 123 H 130 H 123 H Respiratory Rate Blood Pressure 92/53 O2 Sat by Pulse 98 98 Oximetry 06/29/20 06/29/20 06/29/20 00:08 00:13 00:18 Temperature Pulse Rate 125 H 125 H 127 H Respiratory Rate Blood Pressure O2 Sat by Pulse 98 98 98 Oximetry 06/29/20 06/29/20 06/29/20 00:23 00:28 00:33 Temperature Pulse Rate 129 H 121 H 129 H Respiratory Rate Blood Pressure O2 Sat by Pulse 99 99 98 Oximetry 06/29/20 06/29/20 06/29/20 00:38 00:43 00:48 Temperature Pulse Rate 116 H 120 H 121 H Respiratory Rate Blood Pressure O2 Sat by Pulse 98 98 98 Oximetry 06/29/20 06/29/20 06/29/20 00:53 00:58 00:59 Temperature Pulse Rate 122 H 127 H 125 H Respiratory Rate Blood Pressure 104/51 O2 Sat by Pulse 98 98 Oximetry 06/29/20 06/29/20 06/29/20 01:03 01:08 01:13 Temperature Pulse Rate 124 H 117 H 122 H Respiratory Rate Blood Pressure O2 Sat by Pulse 98 99 99 Oximetry 06/29/20 06/29/20 06/29/20 01:14 01:59 02:59 Temperature Pulse Rate 117 H 114 H 118 H Respiratory Rate Blood Pressure 105/55 106/55 O2 Sat by Pulse 82 L Oximetry 1006/29/20 06/29/20 03:59 04:10 04:11 Temperature Pulse Rate 113 H 51 L Respiratory Rate Blood Pressure 119/67 O2 Sat by Pulse 55 L 53 L Oximetry 06/29/20 06/29/20 06/29/20 07:25 07:26 07:30 Temperature 97.9 F Pulse Rate 120 H 117 H 122 H Respiratory 18 Rate Blood Pressure 124/53 O2 Sat by Pulse 99 99 Oximetry 06/29/20 06/29/20 06/29/20 07:35 07:40 07:45 Temperature Pulse Rate 117 H 122 H 117 H Respiratory Rate Blood Pressure O2 Sat by Pulse 98 98 99 Oximetry 06/29/20 06/29/20 06/29/20 07:50 07:58 08:03 Temperature Pulse Rate 60 155 H 54 L Respiratory Rate Blood Pressure O2 Sat by Pulse 83 L 91 87 Oximetry 06/29/20 06/29/20 06/29/20 08:04 08:09 08:14 Temperature Pulse Rate 80 122 H 116 H Respiratory Rate Blood Pressure O2 Sat by Pulse 92 98 98 Oximetry 06/29/20 06/29/20 06/29/20 08:19 08:24 08:29 Temperature Pulse Rate 114 H 117 H 126 H Respiratory Rate Blood Pressure O2 Sat by Pulse 97 97 99 Oximetry 06/29/20 06/29/20 06/29/20 08:34 08:39 08:44 Temperature Pulse Rate 121 H 119 H 116 H Respiratory Rate Blood Pressure O2 Sat by Pulse 98 98 98 Oximetry - Exam Narrative Exam: Around 0725 heart rate tracing showed one minute deceleration into the 60's with recovery to baseline after pt was turned to left lateral. A BPP was ordered. Dr. Lebron updated on pt status. monitor strip has been category 1 since intervention. Will continue to observe. Breasts: deferred Cardiovascular: Regular rate Lungs: Normal air movement Abdomen: Present: normal appearance, soft Vulva: both: normal Uterus: Present: normal FHR: category 2 (Had one minute decel into the 60's with recovery to baseline) Uterine Contraction Pattern: Absent Extremities: normal Deep Tendon Reflex Grade: Normal +2 - Labs Labs: Abnormal Labs 06/28/20 06/28/20 13:55 18:30 Hgb 7.9 L Hct 24.4 L MCV 66 L MCH 21 L RDW 19.0 H Ur Specific [place] 1.001 L Laboratory Results - last 24 hr 06/28/20 06/28/20 06/28/20 13:50 13:50 13:50 WBC RBC Hgb Hct MCV MCH MCHC RDW Plt Count TSH 0.329 Free T4 0.88 Urine Color Urine Turbidity Urine pH Ur Specific [place] Urine Protein Urine Glucose (UA) Urine Ketones Urine Blood Urine Nitrite Urine Bilirubin Urine Urobilinogen Ur Leukocyte Esterase Urine WBC (Auto) Urine RBC (Auto) U Epithel Cells (Auto) Syphilis IgG Antibody Nonreactive Blood Type Antibody Screen 06/28/20 06/28/20 06/28/20 13:55 13:55 18:30 WBC 9.7 RBC 3.68 Hgb 7.9 L Hct 24.4 L MCV 66 L MCH 21 L MCHC 32 RDW 19.0 H Plt Count 380 TSH Free T4 Urine Color Colorless Urine Turbidity Clear Urine pH 7.0 Ur Specific [place] 1.001 L Urine Protein <15 mg/dl Urine Glucose (UA) Neg Urine Ketones Tr Urine Blood Neg Urine Nitrite Neg Urine Bilirubin Neg Urine Urobilinogen < 2.0 Ur Leukocyte Esterase Tr Urine WBC (Auto) < 1.0 Urine RBC (Auto) < 1.0 U Epithel Cells (Auto) < 1.0 Syphilis IgG Antibody Blood Type O POSITIVE Antibody Screen Negative
[2020-06-29] MEDS: PRENATAL VIT27-FE FUMARATE-FOLIC ACID VIT TAB PO SCH (09:51)
[2020-06-29] MEDS: LACTATED RINGERS 1,000 ML IV SCH ×2 (09:53→20:00)
--- NOTE | 2020-06-29 11:16 | Ultrasound Report ---
LIMITED OBSTETRICAL ULTRASOUND WITH BIOPHYSICAL PROFILE HISTORY: Evaluate well-being and amniotic fluid index. FINDINGS: A single viable intrauterine in the cephalic position has heart tones of 14 5 bpm. Amniotic fluid index is 10.3 cm. Biophysical profile is normal at 8/8. IMPRESSION: 1. Normal biophysical profile. 2. Amniotic fluid index 10.3 cm. The deepest pocket is quadrant 3 (3.8 cm). Signer Name: Gerardo Glaser MD Signed: 06/29/2020 11:11 AM Workstation Name: [id number]
[2020-06-29] MEDS: BETAMET ACET/BETAMET NA PH 6 MG/ML INJ 5 ML MDV IM SCH (14:36)
--- NOTE | 2020-06-30 04:01 | Event Note ---
Date: 06/30/20 Chart reviewed and pt noted to have episodes of low pulse ox as well as tachycardia. Pt has had elevaed HR since admission. She did c/o chest heaviness that resolved without intervention. As per RN pt had pulse ox off at the time of the recorded low pulse ox values. When new device was applied, pulse ox was normal. I will obtain chest XR and EKG at this time. Pulse currently recorded as 87 but as charted as high as 180 when pt had the pulse ox on incorrectly. Pt not having contractions at this time and denies sob or chest pain at this time.
--- NOTE | 2020-06-30 04:50 | XRay Report ---
CHEST 1 VIEW 06/30/2020 3:35 AM INDICATION / CLINICAL INFORMATION: hypoxia. COMPARISON: 05/12/14 FINDINGS: Radiograph is obtained with the patient in a lordotic position. SUPPORT DEVICES: None. HEART / MEDIASTINUM: Upper normal size for technique. LUNGS / PLEURA: No significant pulmonary or pleural abnormality. No pneumothorax. ADDITIONAL FINDINGS: No significant additional findings. IMPRESSION: 1. No acute findings. Signer Name: Harrison Waggoner MD Signed: 06/30/2020 4:45 AM Workstation Name: [id number]
[2020-06-30] MEDS: LACTATED RINGERS 1,000 ML IV SCH (05:30)
[2020-06-30 06:27] LABS: Hematocrit 22.1 % (30.3-42.9); Hemoglobin 6.8 gm/dl (10.1-14.3); Mean Corpuscular HGB Conc 31 % (30-34); Platelet Count 378 K/mm3 (140-440); Red Cell Distribution Width 18.5 % (13.2-15.2)
[2020-06-30 06:37] LABS: Basophils % (Auto) 0.3 % (0.0-1.8); Lymphocytes # (Auto) 1.9 K/mm3 (1.2-5.4); Lymphocytes % (Auto) 13.5 % (13.4-35.0); Mean Corpuscular Volume 67 fl (79-97); Monocytes % (Auto) 5.2 % (0.0-7.3)
[2020-06-30 06:38] LABS: Monocytes # (Auto) 0.7 K/mm3 (0.0-0.8)
[2020-06-30] MEDS ORDERED: SODIUM CHLORIDE 0.9% 500 ML 500 ML IV ONE (09:02)
--- NOTE | 2020-06-30 09:09 | Progress Note ---
Assessment and Plan - Patient Problems (1) 32 weeks gestation of Current Visit: Yes Status: Acute (2) Anemia Current Visit: Yes Status: Acute Qualifiers: Anemia type: unspecified type Qualified Code(s): D64.9 - Anemia, unspecified Plan to address problem: Patient with some mild hypovolemic symptoms, patient with a history of anemia and history of previous blood transfusions. Discussed with the patient her low hemoglobin and indication for a blood transfusion and possible relief in her symptoms. Patient desires to proceed with blood transfusion. Risk explained and questions answered. Will transfuse 1 unit per protocol. (3) Hypothyroidism Current Visit: Yes Status: Acute Qualifiers: Hypothyroidism type: unspecified Qualified Code(s): E03.9 - Hypothyroidism, unspecified Plan to address problem: Patient states she was diagnosed as a teenager with hypothyroidism and never placed on medication. Her previous and presently her thyroid function test have been normal. We will monitor but no evidence for treatment at this point. (4) Late care affecting in third trimester Current Visit: Yes Status: Acute (5) contractions Onset Date: 09/04/19 Current Visit: Yes Status: Resolved Plan to address problem: Patient with very infrequent runs of contractions no evidence that she is in premature labor. Patient is status post betamethasone treatment. If stable will discharge after transfusion this afternoon Subjective - Subjective Date of service: 06/30/20 Principal diagnosis: IUP @ 32 wks, labor Interval history: Patient does complain of some dizziness Patient reports: movement normal, contractions (Infrequent) Objective - Vital Signs Vital Signs: Vital Signs - 12hr 06/29/20 06/29/20 06/29/20 21:07 21:12 21:15 Pulse Rate 120 H 119 H 153 H Blood Pressure Blood Pressure [Right] O2 Sat by Pulse 98 99 85 Oximetry 06/29/20 06/29/20 06/29/20 21:24 21:25 21:30 Pulse Rate 189 H 161 H Blood Pressure Blood Pressure [Right] O2 Sat by Pulse 84 85 86 Oximetry 06/29/20 06/29/20 06/29/20 21:35 21:40 21:45 Pulse Rate 156 H 107 H 111 H Blood Pressure Blood Pressure [Right] O2 Sat by Pulse 86 100 99 Oximetry 06/29/20 06/29/20 06/29/20 21:50 21:55 22:00 Pulse Rate 113 H 111 H 115 H Blood Pressure Blood Pressure [Right] O2 Sat by Pulse 100 100 99 Oximetry 06/29/20 06/29/20 06/29/20 22:05 22:10 22:15 Pulse Rate 112 H 113 H 118 H Blood Pressure Blood Pressure [Right] O2 Sat by Pulse 100 99 100 Oximetry 06/29/20 06/29/20 06/29/20 22:20 22:22 22:25 Pulse Rate 113 H 111 H 115 H Blood Pressure Blood Pressure [Right] O2 Sat by Pulse 99 94 98 Oximetry 06/29/20 06/29/20 06/29/20 22:30 22:35 22:40 Pulse Rate 96 H 114 H 114 H Blood Pressure Blood Pressure [Right] O2 Sat by Pulse 93 98 98 Oximetry 06/29/20 06/29/20 06/29/20 22:45 22:50 22:55 Pulse Rate 114 H 118 H 117 H Blood Pressure Blood Pressure [Right] O2 Sat by Pulse 99 98 98 Oximetry 06/29/20 06/29/20 06/29/20 23:00 23:05 23:10 Pulse Rate 113 H 112 H 114 H Blood Pressure Blood Pressure [Right] O2 Sat by Pulse 99 98 98 Oximetry 06/29/20 06/29/20 06/29/20 23:15 23:20 23:25 Pulse Rate 127 H 113 H 109 H Blood Pressure Blood Pressure [Right] O2 Sat by Pulse 96 99 99 Oximetry 06/29/20 06/29/20 06/29/20 23:30 23:35 23:40 Pulse Rate 115 H 113 H 112 H Blood Pressure Blood Pressure [Right] O2 Sat by Pulse 98 99 99 Oximetry 06/29/20 06/29/20 06/29/20 23:45 23:50 23:54 Pulse Rate 114 H 112 H 113 H Blood Pressure Blood Pressure [Right] O2 Sat by Pulse 98 98 90 Oximetry 06/29/20 06/30/20 06/30/20 23:56 00:09 00:24 Pulse Rate 121 H 168 H Blood Pressure Blood Pressure [Right] O2 Sat by Pulse 100 0 L 85 Oximetry 06/30/20 06/30/20 06/30/20 00:25 00:30 00:35 Pulse Rate 95 H 100 H 95 H Blood Pressure Blood Pressure [Right] O2 Sat by Pulse 99 99 98 Oximetry 06/30/20 06/30/20 06/30/20 00:40 00:45 00:50 Pulse Rate 101 H 94 H 95 H Blood Pressure Blood Pressure [Right] O2 Sat by Pulse 100 99 99 Oximetry 06/30/20 06/30/20 06/30/20 00:55 01:00 01:05 Pulse Rate 101 H 98 H 98 H Blood Pressure Blood Pressure [Right] O2 Sat by Pulse 99 98 99 Oximetry 06/30/20 06/30/20 06/30/20 01:10 01:15 01:20 Pulse Rate 106 H 104 H 103 H Blood Pressure Blood Pressure [Right] O2 Sat by Pulse 98 99 98 Oximetry 06/30/20 06/30/20 06/30/20 01:25 01:26 01:30 Pulse Rate 101 H 44 L 102 H Blood Pressure Blood Pressure [Right] O2 Sat by Pulse 98 64 L 88 Oximetry 06/30/20 06/30/20 06/30/20 01:33 01:35 01:40 Pulse Rate 102 H 100 H 106 H Blood Pressure Blood Pressure [Right] O2 Sat by Pulse 91 99 100 Oximetry 06/30/20 06/30/20 06/30/20 01:45 01:50 01:53 Pulse Rate 108 H 102 H 98 H Blood Pressure Blood Pressure [Right] O2 Sat by Pulse 100 100 88 Oximetry 06/30/20 06/30/20 06/30/20 01:55 01:58 02:00 Pulse Rate 92 H 122 H 102 H Blood Pressure Blood Pressure [Right] O2 Sat by Pulse 73 L 91 92 Oximetry 06/30/20 06/30/20 06/30/20 02:05 02:10 02:15 Pulse Rate 100 H 101 H 105 H Blood Pressure Blood Pressure [Right] O2 Sat by Pulse 92 93 99 Oximetry 06/30/20 06/30/20 06/30/20 02:19 02:25 02:27 Pulse Rate 102 H 98 H 56 L Blood Pressure Blood Pressure [Right] O2 Sat by Pulse 98 98 87 Oximetry 06/30/20 06/30/20 06/30/20 02:32 02:37 02:41 Pulse Rate 65 51 L 175 H Blood Pressure Blood Pressure [Right] O2 Sat by Pulse 86 85 87 Oximetry 06/30/20 06/30/20 06/30/20 02:43 02:46 02:51 Pulse Rate 75 93 H Blood Pressure Blood Pressure [Right] O2 Sat by Pulse 89 83 L 80 L Oximetry 06/30/20 06/30/20 06/30/20 02:56 03:00 03:01 Pulse Rate 95 H 132 H Blood Pressure Blood Pressure [Right] O2 Sat by Pulse 80 L 83 L 82 L Oximetry 06/30/20 06/30/20 06/30/20 03:10 03:15 03:21 Pulse Rate 124 H 48 L 146 H Blood Pressure Blood Pressure [Right] O2 Sat by Pulse 82 L 89 89 Oximetry 06/30/20 06/30/20 06/30/20 03:25 03:26 03:30 Pulse Rate 183 H 181 H Blood Pressure Blood Pressure [Right] O2 Sat by Pulse 89 93 82 L Oximetry 06/30/20 06/30/20 06/30/20 03:35 03:40 03:46 Pulse Rate 132 H 180 H Blood Pressure Blood Pressure [Right] O2 Sat by Pulse 79 L 86 83 L Oximetry 06/30/20 06/30/20 06/30/20 03:49 03:54 03:59 Pulse Rate 101 H 87 103 H Blood Pressure Blood Pressure [Right] O2 Sat by Pulse 99 98 99 Oximetry 06/30/20 06/30/20 06/30/20 04:04 04:09 04:14 Pulse Rate 104 H 93 H 91 H Blood Pressure Blood Pressure [Right] O2 Sat by Pulse 99 100 99 Oximetry 06/30/20 06/30/20 06/30/20 04:19 04:24 04:33 Pulse Rate 89 89 93 H Blood Pressure Blood Pressure [Right] O2 Sat by Pulse 99 98 94 Oximetry 06/30/20 06/30/20 06/30/20 04:38 04:43 04:48 Pulse Rate 91 H 84 90 Blood Pressure Blood Pressure [Right] O2 Sat by Pulse 98 99 98 Oximetry 06/30/20 06/30/20 06/30/20 04:53 04:58 05:03 Pulse Rate 85 90 80 Blood Pressure Blood Pressure [Right] O2 Sat by Pulse 99 98 99 Oximetry 06/30/20 06/30/20 06/30/20 05:08 05:13 05:18 Pulse Rate 88 85 90 Blood Pressure Blood Pressure [Right] O2 Sat by Pulse 99 98 98 Oximetry 06/30/20 06/30/20 06/30/20 05:23 05:28 05:33 Pulse Rate 86 106 H 93 H Blood Pressure Blood Pressure [Right] O2 Sat by Pulse 99 99 100 Oximetry 06/30/20 06/30/20 06/30/20 05:38 05:43 05:48 Pulse Rate 87 81 87 Blood Pressure Blood Pressure [Right] O2 Sat by Pulse 99 99 99 Oximetry 06/30/20 06/30/20 06/30/20 05:53 05:57 05:59 Pulse Rate 84 82 84 Blood Pressure 137/61 Blood Pressure 137/61 [Right] O2 Sat by Pulse 98 98 Oximetry 06/30/20 06/30/20 06/30/20 06:03 06:08 06:13 Pulse Rate 92 H 87 87 Blood Pressure Blood Pressure [Right] O2 Sat by Pulse 98 98 98 Oximetry 06/30/20 06/30/20 06/30/20 06:18 06:23 06:28 Pulse Rate 84 86 90 Blood Pressure Blood Pressure [Right] O2 Sat by Pulse 99 98 99 Oximetry 06/30/20 06/30/20 06/30/20 06:33 06:38 06:43 Pulse Rate 86 85 84 Blood Pressure Blood Pressure [Right] O2 Sat by Pulse 98 98 99 Oximetry 06/30/20 06/30/20 06/30/20 06:48 06:53 06:58 Pulse Rate 86 112 H 86 Blood Pressure Blood Pressure [Right] O2 Sat by Pulse 98 100 99 Oximetry 06/30/20 06/30/20 06/30/20 07:03 07:06 07:08 Pulse Rate 93 H 108 H 110 H Blood Pressure 142/70 Blood Pressure [Right] O2 Sat by Pulse 99 80 L Oximetry 06/30/20 06/30/20 06/30/20 07:13 07:17 07:18 Pulse Rate 106 H 99 H 99 H Blood Pressure Blood Pressure [Right] O2 Sat by Pulse 99 92 90 Oximetry 06/30/20 06/30/20 06/30/20 07:22 07:23 07:27 Pulse Rate 116 H 116 H 102 H Blood Pressure Blood Pressure [Right] O2 Sat by Pulse 92 97 98 Oximetry 06/30/20 06/30/20 06/30/20 07:33 07:38 07:43 Pulse Rate 100 H 100 H 99 H Blood Pressure Blood Pressure [Right] O2 Sat by Pulse 100 100 100 Oximetry 06/30/20 06/30/20 06/30/20 07:48 07:53 08:17 Pulse Rate 104 H 100 H Blood Pressure Blood Pressure [Right] O2 Sat by Pulse 99 99 94 Oximetry 06/30/20 06/30/20 06/30/20 08:18 08:20 08:24 Pulse Rate 100 H 93 H 93 H Blood Pressure 145/97 153/87 158/84 Blood Pressure [Right] O2 Sat by Pulse Oximetry 06/30/20 06/30/20 08:34 08:42 Pulse Rate 104 H 107 H Blood Pressure 163/90 171/87 Blood Pressure [Right] O2 Sat by Pulse Oximetry - Exam Breasts: deferred Cardiovascular: Regular rate, Other Lungs: Normal air movement Abdomen: Present: normal appearance, soft Uterus: Present: fundal height above umbilicus FHR: category 1 Uterine Contraction Pattern: Irregular Uterine Tone Measurement Phase: Resting Uterine Contraction Intensity: Mild Extremities: edema (1+) - Labs Labs: Abnormal Labs 06/28/20 06/28/20 06/28/20 13:55 13:55 18:30 WBC RBC Hgb 7.9 L Hct 24.4 L MCV 66 L MCH 21 L RDW 19.0 H Seg Neutrophils % Seg Neutrophils # Ur Specific [place] 1.001 L Crossmatch See Detail 06/30/20 05:43 WBC 14.3 H RBC 3.30 L Hgb 6.8 L Hct 22.1 L MCV 67 L MCH 21 L RDW 18.5 H Seg Neutrophils % 81.0 H Seg Neutrophils # 11.6 H Ur Specific [place] Crossmatch Laboratory Results - last 24 hr 06/28/20 06/29/20 06/30/20 13:55 09:20 05:43 WBC 14.3 H RBC 3.30 L Hgb 6.8 L Hct 22.1 L MCV 67 L MCH 21 L MCHC 31 RDW 18.5 H Plt Count 378 Lymph % (Auto) 13.5 [place] % (Auto) 5.2 Eos % (Auto) 0.0 Baso % (Auto) 0.3 Lymph # (Auto) 1.9 [place] # (Auto) 0.7 Eos # (Auto) 0.0 Baso # (Auto) 0.0 Seg Neutrophils % 81.0 H Seg Neutrophils # 11.6 H Coronavirus (PCR) Negative Crossmatch See Detail
[2020-06-30] MEDS: PRENATAL VIT27-FE FUMARATE-FOLIC ACID VIT TAB PO SCH (10:32)
--- NOTE | 2020-06-30 16:35 | Discharge Summary ---
Providers - Providers Date of Admission: 06/28/20 12:47 Date of discharge: 06/30/20 Attending physician: DORIE HATHAWAY 06/28/20 13:30 Consult to Physician [CONS] Routine Comment: Consulting Provider: BESS THOMAS Physician Instructions: Reason For Exam: limited care, hx delivery, ctx Primary care physician: DORIE HATHAWAY Hospitalization Reason for admission: Persistent contractions Condition: Good Procedures: monitoring, betamethasone treatment and blood transfusion Hospital course: Please see history and physical for details. Patient was admitted for contractions are persistent. She was given tocolyse this and betamethasone treatment for lung maturity. During patient stay she did have episodes of frequent contractions that time of discharge spaced out to be infrequent. Patient was noted to be anemic with complaints of some dizziness on walking. Patient desired blood transfusion stating that she has had some previously. Patient states her symptoms much improved after transfusion of 1 unit of packed red blood cells. Disposition: - TO HOME OR SELFCARE - Discharge Diagnoses (1) 32 weeks gestation of Status: Acute (2) Anemia Status: Acute Qualifiers: Anemia type: unspecified type Qualified Code(s): D64.9 - Anemia, unspecified (3) Hypothyroidism Status: Acute Qualifiers: Hypothyroidism type: unspecified Qualified Code(s): E03.9 - Hypothyroidism, unspecified (4) Late care affecting in third trimester Status: Acute (5) contractions Status: Resolved Core Measure Documentation - Palliative Care Palliative Care/ Comfort Measures: Not Applicable - Core Measures Any of the following diagnoses?: none Exam - Constitutional Vitals: Temp Pulse Resp BP Pulse Ox 98.3 F 93 H 18 120/56 99 06/30/20 13:32 06/30/20 16:20 06/30/20 13:32 06/30/20 16:20 06/30/20 13:51 General appearance: Present: no acute distress - Respiratory Respiratory effort: normal - Cardiovascular Rhythm: regular - Extremities Extremity abnormal: edema (1+) - Abdominal General gastrointestinal: Present: soft - Rectal Rectal Exam: deferred - Integumentary Integumentary: Present: clear, warm, dry - Psychiatric Psychiatric: appropriate mood/affect, intact judgment & insight - Neurologic Neurologic: moves all extremities Plan Activity: advance as tolerated Diet: regular Additional Instructions: Patient instructed to keep scheduled appointment on July 12. Patient advised to call if she has contractions more than 5 times an hour. Rupture of membranes. Or decreased movement. Patient also to call if she has an orthostatic symptoms. If you discharged on iron sulfate prescription was called to pharmacy. Follow up with: DORIE HATHAWAY MD [Primary Care Provider] - 7 Days
[2020-06-30 17:22] VITALS: BP 151/81
== END 2020-06-30 18:20 | disposition home or self-care (01) | DRG 778 ==
LOC: TRG 12:29 → LD 12:29 → TRG 12:46 → LD 12:47
PROVIDERS: ADMIT Obstetrics & Gynecology; ATTEND Obstetrics & Gynecology
PROC: 30233N1 Transfusion of Nonautologous Red Blood Cells into Peripheral Vein, Percutaneous Approach (ICD-10-PCS; principal; 2020-06-30)
DX: O60.03 Preterm labor without delivery, third trimester (principal); Z3A.32 32 weeks gestation of pregnancy; O99.891 Other specified diseases and conditions complicating pregnancy; O99.283 Endocrine, nutritional and metabolic diseases complicating pregnancy, third trimester; O99.013 Anemia complicating pregnancy, third trimester; E03.9 Hypothyroidism, unspecified; Z90.49 Acquired absence of other specified parts of digestive tract; Z80.41 Family history of malignant neoplasm of ovary; Z80.49 Family history of malignant neoplasm of other genital organs; Z82.49 Family history of ischemic heart disease and other diseases of the circulatory system; Z83.3 Family history of diabetes mellitus; R00.0 Tachycardia, unspecified; D64.9 Anemia, unspecified; O76 Abnormality in fetal heart rate and rhythm complicating labor and delivery
CPT/HCPCS: 36415; 71045; 76815; 76819; 81001; 84439; 84443; 85025; 85027; 86592; 86850; 86900; 86901; 86920; 87116; 93005; G0378; J0702; J3105; J7120; U0003